=== PATIENT | female | born 1985 | race Hispanic/Latino ===

== ENCOUNTER 2016-10-07 11:34 | Emergency (ER) | payer OTHER ==
[~2016-10-07] VITALS: Ht 165.1 cm; Wt 79.8 kg
[2016-10-07] MEDS ORDERED: ONDANSETRON 4MG/2ML VIAL (J2405) IV ONE (14:00)
[2016-10-07] MEDS ORDERED: KETOROLAC 30 MG/ML VIAL (J1885) IV ONE (14:00)
[2016-10-07] MEDS ORDERED: NS 1,000 ML IV ONE (14:00)
[2016-10-07 14:16] LABS: BASO % 0.1 % (0.0-1.0); EOS # 0.1 K/mm3 (0.0-0.50); EOS % 1.3 % (0.0-3.0); LARGE UNSTAINED CELL # 0.1 K/mm3 (0.0-0.4); LARGE UNSTAINED CELL % 0.6 % (0.0-4.0); LYMPH # 0.6 K/mm3 (1.5-6.5); LYMPH % 4.9 % (24.0-44.0); MEAN CORPUSCULAR HEMOGLOBIN 29.1 pg (27.0-33.0); MEAN CORPUSCULAR HGB CONC 34.3 g/dl (32.0-36.5); MEAN CORPUSCULAR VOLUME 84.9 fl (80.0-96.0); MONO # 0.3 K/mm3 (0.0-0.8); MONO % 3.1 % (0.0-5.0); NEUTROPHILS # 9.3 K/mm3 (1.8-7.7); PLATELET COUNT, AUTOMATED 255 k/mm3 (150-450); RED CELL DISTRIBUTION WIDTH 12.7 % (11.5-14.5); WHITE BLOOD COUNT 10.4 K/mm3 (4.0-10.0)
[2016-10-07 14:37] LABS: ALBUMIN 3.9 GM/DL (3.2-5.2); ALBUMIN/GLOBULIN RATIO 1.05 (1.00-1.93); ALKALINE PHOSPHATASE 130 U/L (45-117); ALT/SGPT 30 U/L (12-78); ANION GAP 10 MEQ/L (8-16); AST/SGOT 17 U/L (15-37); BILIRUBIN,DIRECT 0.1 MG/DL (0.0-0.2); BILIRUBIN,TOTAL 0.6 MG/DL (0.2-1.0); BLOOD UREA NITROGEN 12 MG/DL (7-18); CALCIUM LEVEL 8.6 MG/DL (8.5-10.1); CARBON DIOXIDE LEVEL 23 MEQ/L (21-32); CHLORIDE LEVEL 107 MEQ/L (98-107); CREATININE FOR GFR 0.78 MG/DL (0.55-1.02); GLOMERULAR FILTRATION RATE > 60.0 (>60); GLUCOSE, FASTING 114 MG/DL (70-105); POTASSIUM SERUM 3.6 MEQ/L (3.5-5.1); SODIUM LEVEL 140 MEQ/L (136-145); TOTAL PROTEIN 7.6 GM/DL (6.4-8.2)
[2016-10-07 14:44] LABS: CONTROL LINE HCG INT CTR LINE PRESENT
[2016-10-07] MEDS ORDERED: ZOFR4TAB3 PO (15:40)
[2016-10-07 15:50] VITALS: BP 113/59
== END 2016-10-07 16:06 | disposition home or self-care (01) ==
LOC: M ED 14:54
DX: K52.9 Noninfective gastroenteritis and colitis, unspecified (principal)
CPT/HCPCS: 36415; 80048; 80076; 81001; 83690; 84703; 85025; 87086; 96374; 96375; 99283; J1885; J2405

== ENCOUNTER 2016-11-20 23:34 | Emergency (ER) | payer OTHER ==
[~2016-11-20] VITALS: Ht 165.1 cm; Wt 72.6 kg
[~2016-11-20 23:34] MED LIST: ZOFR4TAB3 PO
[2016-11-20] MEDS ORDERED: IBUP600T26 PO (23:45)
[2016-11-20] MEDS ORDERED: AMOX500C PO (23:45)
[2016-11-21] MEDS ORDERED: BUPIVACAINE HCL 0.5% 30 ML VIAL SC ONE (00:15)
[2016-11-21] MEDS ORDERED: CETACAINE SPRAY 20GM (FLOOR STOCK) TOP ONE (00:15)
[2016-11-21 00:56] VITALS: BP 133/62
== END 2016-11-21 00:58 | disposition home or self-care (01) ==
LOC: M ED 11-21 00:31
DX: K02.9 Dental caries, unspecified (principal); K08.9 Disorder of teeth and supporting structures, unspecified

== ENCOUNTER 2017-02-23 21:51 | Emergency (ER) | payer OTHER ==
[~2017-02-23] VITALS: Ht 170.2 cm; Wt 79.4 kg
[~2017-02-23 21:51] MED LIST changes: +AMOX500C PO; +IBUP-1022 PO
[2017-02-23 21:52] VITALS: BP 122/83
[2017-02-24] MEDS ORDERED: NAPROXEN 250 MG TAB PO ONE (00:45)
[2017-02-24] MEDS ORDERED: CYCLOBENZAPRINE 10 MG TAB PO ONE (00:45)
[2017-02-24] MEDS ORDERED: NAPR500T PO ×2 (00:49→00:55)
[2017-02-24] MEDS ORDERED: CYCL10TA PO ×2 (00:49→00:55)
== END 2017-02-24 00:57 | disposition home or self-care (01) ==
LOC: M ED 21:51
DX: M54.9 Dorsalgia, unspecified (principal); V46.5XXA Car driver injured in collision with other nonmotor vehicle in traffic accident, initial encounter; Y92.410 Unspecified street and highway as the place of occurrence of the external cause; Y99.9 Unspecified external cause status; Y93.9 Activity, unspecified

== ENCOUNTER → 2017-05-18 | Outpatient (CLI) | payer OTHER ==
[~2017-05-18] MED LIST changes: +CYCL10TA PO; +NAPR500T PO
[2017-05-18 09:29] LABS: BASO % 0.2 % (0.0-1.0); EOS # 0.1 10^3/uL (0.0-0.50); EOS % 1.5 % (0.0-3.0); IMMATURE GRANULOCYTE % 0.2 % (0-0); LYMPH # 1.6 10^3/uL (1.5-4.5); LYMPH % 29.1 % (24.0-44.0); MEAN CORPUSCULAR HEMOGLOBIN 30.8 pg (27.0-33.0); MEAN CORPUSCULAR HGB CONC 34.8 g/dl (32.0-36.5); MEAN CORPUSCULAR VOLUME 88.6 fl (80.0-96.0); MONO # 0.4 10^3/uL (0.0-0.8); NEUTROPHILS # 3.3 10^3/uL (1.8-7.7); RED CELL DISTRIBUTION WIDTH 13.1 % (11.5-14.5); WHITE BLOOD COUNT 5.4 10^3/uL (4.0-10.0)
[2017-05-18 10:39] LABS: ALBUMIN 3.9 GM/DL (3.2-5.2); ALBUMIN/GLOBULIN RATIO 1.22 (1.00-1.93); ALKALINE PHOSPHATASE 106 U/L (45-117); ALT/SGPT 31 U/L (12-78); ANION GAP 7 MEQ/L (8-16); AST/SGOT 22 U/L (15-37); BILIRUBIN,TOTAL 0.5 MG/DL (0.2-1.0); BLOOD UREA NITROGEN 11 MG/DL (7-18); CALCIUM LEVEL 8.9 MG/DL (8.5-10.1); CARBON DIOXIDE LEVEL 28 MEQ/L (21-32); CHLORIDE LEVEL 105 MEQ/L (98-107); CHOLESTEROL LEVEL 154 MG/DL (<200); CREATININE FOR GFR 0.61 MG/DL (0.55-1.02); GLOMERULAR FILTRATION RATE > 60.0 (>60); GLUCOSE, FASTING 99 MG/DL (70-105); POTASSIUM SERUM 4.2 MEQ/L (3.5-5.1); SODIUM LEVEL 140 MEQ/L (136-145); TOTAL PROTEIN 7.1 GM/DL (6.4-8.2); TRIGLYCERIDES LEVEL 104 MG/DL (<150)
== END ==
LOC: M LAB 08:29
PROVIDERS: ATTEND Physician Assistant Medical
DX: O24.410 Gestational diabetes mellitus in pregnancy, diet controlled (principal)

== ENCOUNTER → 2017-07-10 | Outpatient (REF) | payer OTHER | LOC: M SFHCWAGY 15:42 | PROVIDERS: ATTEND Family Medicine | DX: Z12.4 Encounter for screening for malignant neoplasm of cervix (principal); Z11.3 Encounter for screening for infections with a predominantly sexual mode of transmission ==